=== PATIENT | female | born 1990 | race Caucasian/White ===

== ENCOUNTER 2024-10-14 07:44 | Outpatient (AMB) | payer OTHER, SELFPAY ==
[2024-10-14 07:49] VITALS: BP 116/78; PULSE 92; BMI 28.3
--- NOTE | 2024-10-14 07:49 | MHC.OFFVIS ---
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 Outside labs reviewed done in March 2024 which showed TSH of 2.64. Also showed low total T3 of 52 again no units displayed, free T4 of 1.27. TPO antibodies were undetectable. Ultrasound from October 2024 showed an asymmetrical thyroid with an enlarged right lobe as compared to left lobe, though no discrete nodules, homogeneous appearance. Back in Jan 2024, starting complaining of hair loss , cold intolerance. Reports fatigue. Reports voice hoarseness and difficult swallowing. Hasnt been able to lose weight since the past 2 years. Exercise 3-4 times a week for an hour , lifts ,20 mins cardio. Pregnancies 4 pregnancies, 4 kids. No infertility. No miscarriages. s/p tubal ligation. Does get periods every month. Does reports heavy menstruations. Reports both diarrhea and constipation due to IBS . Reports palpitations intermittently. Patient denies any history of childhood neck radiation. Denies having ever used lithium, amiodarone or biotin supplements. Maternal aunt has hypothyrodiism Paternal cousin diagnosed with thyroid cancer. social history Quit smoking 11 years ago. 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 Pulmonary: intermittent SOB GI:No abdominal pain, no nausea or vomiting, no anorexia, no blood in stool : no burning micturition, dysuria or increase in urinary frequency Physical exam General: sitting comfortably in no acute distress HEENT: normocephalic/atraumatic, EOM intact, moist oral mucosa Neck: supple, symmetrical, no thyromegaly , no dorsocervical or supraclavicular fat pads Cardiac: normal heart sounds Pulm: normal breath sounds B/L, no added breath sounds Abd: not distended, no tenderness Extremities: no edema, no signs of myxedema, brisk reflexes noted Neuro: AAO x3, Speech: normal, no facial droop, moving all 4 extremities PFSH Medical History (Updated 10/14/24 @ 08:31 by Melissa Castro MD) Low serum triiodothyronine (T3) Fatigue Surgical History (Updated 10/14/24 @ 07:51 by CHUY Torres) Hx of cholecystectomy Hx of hernia repair Hx of section Family History (Updated 10/14/24 @ 07:55 by CHUY Torres) Father No problems noted. Mother No problems noted. Social History (Updated 10/14/24 @ 07:51 by CHUY Torres) Alcohol intake: current Alcohol intake frequency: holidays/special occasions only Patient Tobacco Use Status: Former Tobacco user Physical Exam Vital Signs: Last Vital Signs Pulse 92 10/14/24 07:49 BP 116/78 10/14/24 07:49 BMI result Body Mass Index 28.3 Assessment & Plan Assessment & Plan (1) Low serum triiodothyronine (T3): Code(s): R79.89 - Other specified abnormal findings of blood chemistry Category: Medical Plan: 33-year-old female coming in today for initial evaluation for concerns of hypothyroidism as total T3 was noted to be low. Patient does have symptoms consistent with hypothyroidism of significant tiredness, difficulty losing weight, hair loss. However free T4 and TSH noted to be normal from March 2024. We will repeat labs now. If labs are normal, she does not need endocrine follow up, and primary care physician can assess further for causes of tiredness. I also reviewed the report of her thyroid ultrasound from October 2024 which showed homogeneous echotexture. Even though noted to be asymmetrical, these findings are not concerning, no nodules noted. TPO antibodies also noted to be negative. This is again reassuring. I explained to the patient that total T3 can have variability depending on nutritional intake. It is not a good measure to go by in terms of thyroid disease, and we will repeat her TSH and free T4 to ensure that she does not have any thyroid dysfunction. Patient verbalized understanding and is in agreement with the plan. Plan: -ordered TSH, free T4 -if these labs are normal, patient can follow up with primary care physician to assess other causes of her symptoms Plan I spent 40 minutes in reviewing the record, seeing the patient and documenting in the medical record. Orders: Orders Thyroid Stimulating Hormone Today R53.83 - Other fatigue Free T4 (Free Thyroxine) Today R53.83 - Other fatigue Coding Level of Care Code New Pt Level 4 (21802) Diagnoses Low serum triiodothyronine (T3) R79.89 Time Spent (min) 40
== END 2024-10-14 08:22 | disposition home or self-care (01) ==
PROVIDERS: Visit Provider Student in an Organized Health Care Education/Training Program
DX: R79.89 Other specified abnormal findings of blood chemistry (principal)
CPT/HCPCS: 99204

== ENCOUNTER → 2024-10-14 07:44 | Outpatient (BNVA) | payer OTHER, SELFPAY | PROVIDERS: Visit Provider Student in an Organized Health Care Education/Training Program ==

== ENCOUNTER 2024-10-14 08:28 | Outpatient (REF) | payer OTHER, SELFPAY ==
[2024-10-14 11:14] LABS: Free T4 (Free Thyroxine) 0.91 ng/dL (0.71-1.85); Thyroid Stimulating Hormone 2.42 uIU/mL (0.32-4.0)
== END 2024-10-14 08:29 | disposition home or self-care (01) ==
LOC: HO.10HDL 08:28
PROVIDERS: Visit Provider Student in an Organized Health Care Education/Training Program
DX: R53.83 Other fatigue (principal)
CPT/HCPCS: 36415; 84439; 84443

== ENCOUNTER 2025-02-01 07:35 | Outpatient (AMB) | payer OTHER, SELFPAY ==
[2025-02-01 07:37] VITALS: BP 112/72; PULSE 90; O2SAT 96; BMI 28.6
--- NOTE | 2025-02-01 07:37 | A.OFFVIS_ITS ---
Vital Signs 3 02/01/25 07:37 Height 5 ft 1.5 in Weight 153 lb 10.595 oz BMI 28.6 BP 112/72 Blood Pressure Location Lt brachial Position Sitting Pulse 90 Pulse Source Pulse Oximeter Pulse Oximetry (%) 96 Oxygen Delivery Method Room Air Intake Visit Reasons: Thyroid nodule Intake Note: Patient present today for thyroid nodule. Botany Technician Required: No Accompanied by: cousin Allergies amoxicillin [From Augmentin] Allergy (Mild, Verified 02/01/25 07:46) Unknown clavulanic acid [From Augmentin] Allergy (Mild, Verified 02/01/25 07:46) Unknown Medication List - Last Reconciled 02/01/25 by Melissa Castro MD No Known Home Meds HPI Comments Details: 33-year-old female here today for follow up of hypothyroidism. HPI Outside labs reviewed done in March 2024 which showed TSH of 2.64. Also showed low total T3 of 52 again no units displayed, free T4 of 1.27. TPO antibodies were undetectable. Ultrasound from October 2024 showed an asymmetrical thyroid with an enlarged right lobe as compared to left lobe, though no discrete nodules, homogeneous appearance. Back in Jan 2024, starting complaining of hair loss , cold intolerance. Reports fatigue. Reports voice hoarseness and difficult swallowing. Hasnt been able to lose weight since the past 2 years. Exercise 3-4 times a week for an hour , lifts ,20 mins cardio. Pregnancies 4 pregnancies, 4 kids. No infertility. No miscarriages. s/p tubal ligation. Does get periods every month. Does reports heavy menstruations. Reports both diarrhea and constipation due to IBS . Reports palpitations intermittently. Patient denies any history of childhood neck radiation. Denies having ever used lithium, amiodarone or biotin supplements. Maternal aunt has hypothyrodiism Paternal cousin diagnosed with thyroid cancer. social history Quit smoking 11 years ago. 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 Otherwise normal vascularity in homogeneous gland. 01/04/2025: Patient went to the ER because her watch indicated abnormal rhythm of atrial fibrillation, however is found to have normal workup in the ER. Labs at that time showed TSH mildly elevated at 5.58, normal free T4 of 1.19. Constipation, achy joints, LMP: last two periods spotting, dry skin, hair loss, difficulty swallowing, reports cold intolerance. Reports brain fog ROS - General: Reports significant fatigue affecting daily activities. - Skin: Denies skin changes such as vitiligo or acanthosis nigricans but reports dry skin and brittle nails. - Endocrine: Reports cold intolerance, weight gain, and hair loss. - Reproductive: Reports tiredness, low libido, irregular periods with recent episodes of amenorrhea, and consultation with PRIZE COORDINATOR. - Gastrointestinal: Reports constipation. - Musculoskeletal: Reports joint stiffness and achiness. Physical exam General: sitting comfortably in no acute distress HEENT: normocephalic/atraumatic, EOM intact, moist oral mucosa Neck: supple, symmetrical, no thyromegaly , no dorsocervical or supraclavicular fat pads Cardiac: normal heart sounds Pulm: normal breath sounds B/L, no added breath sounds Abd: not distended, no tenderness Extremities: no edema, no signs of myxedema, brisk reflexes noted Neuro: AAO x3, Speech: normal, no facial droop, moving all 4 extremities Laboratory Tests 10/14/24 08:33 TSH 2.42 Free T4 0.91 [facility] Medical History (Updated 02/01/25 @ 08:07 by Melissa Castro MD) Subclinical hypothyroidism Low serum triiodothyronine (T3) Fatigue Surgical History Hx of cholecystectomy Hx of hernia repair Hx of section Family History Father No problems noted. Mother No problems noted. Social History Alcohol intake: current Alcohol intake frequency: holidays/special occasions only Patient Tobacco Use Status: Former Tobacco user Physical Exam Vital Signs: Last Vital Signs Pulse 90 02/01/25 07:37 BP 112/72 02/01/25 07:37 Pulse Ox 96 02/01/25 07:37 Oxygen Delivery Method Room Air 02/01/25 07:37 BMI result Body Mass Index 28.6 Assessment & Plan Assessment & Plan (1) Low serum triiodothyronine (T3): Code(s): R79.89 - Other specified abnormal findings of blood chemistry Category: Medical Plan: See below (2) Subclinical hypothyroidism: Code(s): E03.8 - Other specified hypothyroidism Category: Medical Plan: 33-year-old female coming in today for initial evaluation for concerns of hypothyroidism as total T3 was noted to be low. Patient does have symptoms consistent with hypothyroidism of significant tiredness, difficulty losing weight, hair loss. However free T4 and TSH noted to be normal from March 2024. . I also reviewed the report of her thyroid ultrasound from October 2024 which showed homogeneous echotexture. Even though noted to be asymmetrical, these findings are not concerning, no nodules noted. TPO antibodies also noted to be negative. This is again reassuring. I explained to the patient that total T3 can have variability depending on nutritional intake. It is not a good measure to go by in terms of thyroid disease, labs repeated 10/14/2024 showed normal TSH and free T4. 12/22/2024: Had another ultrasound of the thyroid which showed a subcentimeter nodule in the interpolar region which did not meet TI-RADS criteria for follow up. Otherwise normal vascularity in homogeneous gland. 01/04/2025: Patient went to the ER because her watch indicated abnormal rhythm of atrial fibrillation, however is found to have normal workup in the ER. Labs at that time showed TSH mildly elevated at 5.58, normal free T4 of 1.19. I reviewed the lab results, which indicated subclinical hypothyroidism with a mildly elevated TSH and normal Free T4, and a thyroid ultrasound showed a sub- centimeter nodule. We discussed that no immediate treatment is needed unless the TSH levels escalate or symptoms become more severe. Treatment criteria for subclinical hypothyroidism involves I explained the clinical significance of subclinical hypothyroidism and the criteria for initiating therapy. I informed the patient that the thyroid nodule is non-concerning and requires no follow-up based on its size and features. We agreed to retest thyroid function in eight weeks and monitor symptoms. Patient verbalized understanding and is in agreement with the plan. If she continues to have significant symptoms, with mildly elevated TSH levels, we can do a trial of low-dose 25 mcg of levothyroxine. However currently she has had fluctuations recently in her TSH levels so I will wait for repeat labs. She also had some concern about atrial fibrillation, and unwarranted treatment with levothyroxine can precipitate that. So for now I will monitor her labs closely. Plan: -Repeat thyroid function tests with free T4, TSH, total T3 in eight weeks.. - Follow up in three months, or sooner if symptoms worsen or lab results are concerning. Plan I spent 30 minutes in reviewing the record, seeing the patient and documenting in the medical record. Orders: Orders 2 Thyroid Stimulating Hormone 8 Weeks E03.8 - Other specified hypothyroidism Free T4 (Free Thyroxine) 8 Weeks E03.8 - Other specified hypothyroidism Triiodothyronine T3 Total 8 Weeks E03.8 - Other specified hypothyroidism Coding Level of Care Code Est Pt Level 4 (90259) Diagnoses Low serum triiodothyronine (T3) R79.89 Subclinical hypothyroidism E03.8 Time Spent (min) 30
--- OUTSIDE RECORDS SUMMARY | 2025-02-01 07:37 | XMS_ITS | Encounter Summary ---
Author Organization [facility] Address [address] [place] [address] Care Team Providers Care Cardiovascular Technician Name Role Phone Rachel Augustine MD Primary Care Prov ider Encounter Details Date Type Department Care Team (Late st Contact Info) Description 09/30/2024 9:46 AM EDT Hospital Encounter [facility] Myrtle Arango MD [address] [facility] [address] [place] [address] Social History Tobacco Use Types Packs/Day Years Used Date Smoking Tobacco: Never Assessed Comments Unknown Sex and Gender Information Value Date Recorded Sex Assigned at Not on file Legal Sex Female 3:39 AM EST Gender Identity Not on file Sexual Orientation Not on file documented as of this encounter Last Filed Vital Signs Vital Sign Reading Time Taken Comments Blood Pressure 118/81 09/30/2024 9:53 AM EDT Sitting Left arm Pulse 80 09/30/2024 9:53 AM EDT Temperature - - Respiratory Rate - - Oxygen Saturation - - Inhaled Oxygen Concentration - - Weight 69.3 kg (152 lb 12.8 oz) 08/05/2024 11:44 AM EDT Height 157.5 cm (5' 2 ) 08/05/2024 11:4 4 AM EDT Body Mass Index 27.95 08/05/2024 11:44 AM EDT documented in this encounter Progress Notes * Myrtle Arango MD - 09/30/2024 10:00 AM EDT HPI: Karol Coppola is a 33 y.o. year old female referred to our center by No primary care provider on file. for evaluation and management of white matter lesions Interval history Patient is here for follow up No new neurological symptom concerning for demyelination since last visit Since last visit she had spinal tap with side effects afterwards with trouble with urinary symptoms, headache which all resolved Overall her symptoms have markedly improved she does not experience as much muscle strength numbness or leg dragging Reviewed and discussed CSF results being non inflammatory She has episodes tremulous /tremors mainly in Lt ,Watch the video with very little improvement to rhythmic tremor concerning for milligrams tremor versus essential tremor per patient it is not related to her stress, She is using propranolol as needed for palpitations she is not using it as much discussed with the patient she can try to use it for tremors too as well as headaches Her migraine headache is still bothersome 3 to 3 migraines per month, she tried sumatriptan but makes her very sleepy and drowsy she avoids using it now as she sleeps 4 hours to get rid of her headaches Reviewed and discussed ophthalmology notes obtained with no conclusive data about her visual symptoms she is scheduled to get further workup She is still experiencing difficulty emptying her bladder she was evaluated by gynecology with no conclusive findings she was asked to blow in a strawto help her with her symptoms Last visit history Patient is here for follow up No new neurological symptom concerning for demyelination since last visit Since last visit she has been having frequent infection since last visit, She had pneumonia and strept afterwards , 2 viral colds Reviewed and discussed MRI thoracic spine with the patient with normal T2 changes She denies any change in her bowel or bladder symptoms still experiencing difficulty emptying and urgency Patient is scheduled to be evaluated by ophthalmology HPI 33 yo female with PMH anxiety, depression , endometriosis , Migraine on PRN Fioricet , her neurological symptoms started In January she had mononucleosis infection afterwards, she started developingsymptoms incuding , she had fatigue , shortly after infection she had been very fatigued and burning shocks in her hands and legs occasionally , burning in her hands , difficulty clamping her hands , happen occasionally not persistent none of the symptoms, She is also been experiencing pressure behind Lt eye and tunnel vision , pain with moving her eye , blurry vision come and go , last week shehad an episode of blurry vision She has been having Lt leg dragging last week she had difficulty with walking , she also experiencems stiffness in both her upper and lower extremity She had vertigo in past unsure about exact date, she had couple of hrs at time sometimes Reviewing other concerning symptoms ,She experience a bad brain fog MRI brain was done as part of the workup which did show T2 changes scattered supratentorially she was referred to our clinic for further assessment She has been evaluated with rheumatology at [place] in past for fibromylagia She denies any prior neurological symptoms prior to January Surgery history include c section , gall bladder excision Active Symptoms: Bowel/bladder:she has difficulty empty her bladder , she has urgency , she see obgyn for her symptoms , no specific diagnosis Depression/anxiety: she is on hydroxyzine as needed for anc Gait impairment: no limitation Fatigue: she is always fatigued , she snores while sleeping , she had sleep apnea and Taking vitamin D supplementation: yes Heat Sensitivity:yes Past or present Lhermitte's: yes Past Medical History: Diagnosis Date ??? Anxiety ??? Depression ??? Endometriosis ??? Fibromyalgia ??? Migraine ??? PTSD (post-traumatic stress disorder) ??? Seizure (HCC) ONE SEIZURE IN 2019 NEVER AGAIN Current Outpatient Medications Medication Sig Dispense Refill ??? Hugyigrowk-IUWD-Yjholszc 50-300-40 MG CAPS Take 1 capsule by mouth every 4 (four) hours as needed. ??? hydrOXYzine (ATARAX) 50 MG tablet Take 1 tablet (50 mg total) by mouth 3 (three) times a day asneeded for itching. ??? propranolol (INDERAL) 20 MG tablet Take 1 tablet (20 mg total) by mouth 3 (three) times a day. ??? rizatriptan (MAXALT-RESEARCH AND DEVELOPMENT SPECIALIST) 10 MG disintegrating tablet Take 1 tablet (10 mg total) by mouth as needed for migraine. May repeat in 2 hours if needed 10 tablet 0 No current facility-administered medications for this visit. 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 Neurologic Exam: BP 118/81 (BP Location: Left arm, Patient Position: Sitting) Pulse 80 Temp 97.1 ??F (36.2 ??C) (Temporal) MS: AOx3 CN: perrla, , V1-3 intact to LT, face symmetric, bilateral SCM/trapezius 5/5, tongue/uvula/palate midline Motor: 5/5 in all extremities slight weakness in the left lower extremity 4/5 Sensation: Intact to light touch, temperature, and vibration in all extremities Reflexes: 2+ in bilateral biceps and patellae, toes downgoing bilaterally Cerebellar: FNF intact bilaterally, FFM intact bilaterally, EDWIN intact bilaterally, tandem gait normal, romberg negative Labs: Reviewed available labs Vit B12 399, VIT d 39 Negative MARCO A negative SSA SSB negative CSF white blood cells 2 protein 43 no oligoclonal Imaging: All images were reviewed by me. MRI brain: 05/2024 nonspecific T2 changes mostly subcortical there is some juxtacortical lesions no infratentorial lesions MRI C spine: 05/2024 unremarkable MRI T spine: Unremarkable no T2 change A/P: Karol Coppola is a 33 y.o. year old female with multiple neurological symptoms MRI with white matter lesion. patient does not have a specific episode concerning for demyelination but she had multiple neurological symptoms that are concerning including lower extremity weakness paresthesias that has improved and also bladder symptoms we will evaluate with urology, reviewed MRI brain scattered nonspecific T2 changes some are juxtacortical supratentorial no infratentorial lesion MRI cervical spine/thoracic spine with no cord lesion , discussed with the patient that the lesion burden is higherthan what we expect in her age mainly with no comorbidities we obtained spinal tap that CSF analysis did not show any inflammation did not show any inflammation White matter lesion -MRI brain on annual basis to ensure stability -MRI cervical thoracic spine with no cord lesion -CSF noninflammatory negative oligoclonal bands -Follow-up with ophthalmology for further workup -Will consider PT/OT/ST referral for functional evaluation Urinary symptoms: Will refer to urology -Obtain gynecology notes Migraine headache Rizatriptan abortive Take one tablet as needed for headaches, may repeat in 2 hours, do not exceed more than 2 per day Counseled on avoidance of migraine triggers, particularly sleep deprivation, missed meals, dehydration, certain foods and avoiding excessive caffeine/NSAIDs. -RTC in 4 months for follow up The patient and I discussed the clinical picture during today's appointment. Additional time was spent prior to the actual appointment reviewing records, lab values and imaging results and preparing documentation for today's visit. There was also time spent following the in person visit documenting, arranging for further diagnostic testing and follow-up appointments. The entire time spent in thisprocess was greater than 40 minutes. The majority of the actual [id number] visit was spent counseling the patient with respect to the current neurological picture. Myrtle Arango MD documented in this encounter Plan of Treatment Upcoming Encounters Date Type Department Care Team (Late st Contact Info) Description 02/01/2025 2:30 PM EST Office Visit [facility] for [place] - [place] [address] [place] [address] Remedios Ford, KYLE [address] [place] [address] [place] [address] documented as of this encounter Visit Diagnoses Not on filedocumented in this encounter Care Teams Cardiovascular Technician Relationship Specialty Start Date End Date Rachel Augustine MD PCP - General Internal Medicine 03/26/21 12/26/24 documented as of this encounter
--- OUTSIDE RECORDS SUMMARY | 2025-02-01 07:37 | XMS_ITS | Encounter Summary ---
Author Organization [facility] Address [address] [place] [address] Care Team Providers Care County Agent Name Role Phone Rachel Augustine MD Primary Care Prov ider Encounter Details Date Type Department Care Team (Latest Contact Info) Description 08/31/2024 7:56 AM EDT Hospital Encounter TH HISTORIC ENCOUNTERS [facility] ONLY Myrtle Arango MD [address] [facility] [address] [place] [id number] Disorder of brain, unspecified Social History Tobacco Use Types Packs/Day Years Used Date Smoking Tobacco: Never Assessed Comments Unknown Sex and Gender Information Value Date Recorded Sex Assigned at Not on file Legal Sex Female 3:39 AM EST Gender Identity Not on file Sexual Orientation Not on file documented as of this encounter Plan of Treatment Upcoming Encounters Date Type Department Care Team (Late st Contact Info) Description 02/01/2025 2:30 PM EST Office Visit [facility] for [facility] [address] [place] [phone] Remedios Ford, KYLE [address] [place] [address] [place] [address] [phone] (work) documented as of this encounter Procedures Procedure Name Priority Date/Time Associated Diagnosis Comments LUMBAR PUNCTURE Routine 08/31/2024 3:51 PM EDT Disorder of brain, unspecified documented in this encounter Results * LUMBAR PUNCTURE (08/31/2024 3:51 PM EDT) Anatomical Region Laterality Modality Interventional R adiology 08/31/2024 8:10 AM EDT Narrative 08/31/2024 3:51 PM EDT [facility] Diagnostic Imaging Department [address] [place] [id number] Patient: ??LLOYDWICHO ?/Age/Sex: 1990 - 33 - F Unit#: ??[id number] ? Location/Status: ??SPDIANGIO/REG CLI ? Mnemonic/Ordering Site: ??PUNCTMYELO/SPIR Ordering Physician: ??DARLENE ARANGO MD Lumbar Puncture - 08/31/241022 Report Status:Signed INDICATION: White matter lesions concerning for multiple sclerosis TECHNIQUE: Written informed consent obtained. Patient placed in the left lateral decubitus position on the angiographic table and lower lumbar spine draped and prepped in usual sterile fashion. 6 cc of 1% buffered lidocaine utilized as local anesthetic. Sedation: Moderate intravenous sedation was initiated and maintained for 30 minutes while the patient was independently monitored by the radiology nurse under the supervision of the interventional radiologist. A total of 2 mg of Versed and 50 mcg of fentanyl administered during the procedure. Under fluoroscopic guidance 20 gauge spinal needle advanced into the thecal sac at the L3-L4 level. Clear CSF noted from the needle hub. Approximately 16 mL of CSF removed and sent for evaluation as ordered. Opening pressure 18 centimeters of water with closing pressure 11 centimeters of water. Needle removed and bandage applied. The patient tolerated the procedure well and left the department in stable condition without immediate complications. FINDINGS: Needle access at the L3-L4. Total patient dose (air kerma): 12 mGy IMPRESSION: Fluoroscopic-guided lumbar puncture. Dictating Physician: ??HANNAH ESPINOZA MD Electronically Signed by: ??HANNAH ESPINOZA MD Dic Date/Time: ??08/31/241550 Sign date/Time: ??08/31/241550 Procedure Note Hannah Espinoza MD - 09/28/2024 [facility] Diagnostic Imaging Department [address] [place] [address] Patient: LLOYDWICHOO.B./Age/Sex: 1990 - 33 - F Unit#: [id number] Location/Status: SPDIANGIO/REG CLI Mnemonic/Ordering Site: PUNCTMYELO/SPIR Ordering Physician: DARLENE ARANGO MD Lumbar Puncture - 08/31/24 - 1023 Report Status:Signed INDICATION: White matter lesions concerning for multiple sclerosis TECHNIQUE: Written informed consent obtained. Patient placed in the left lateral decubitus position on the angiographictable and lower lumbar spine draped and prepped in usual sterile fashion. 6 cc of 1% buffered lidocaine utilized as local anesthetic. Sedation: Moderate intravenous sedation was initiated and maintained for30 minutes while the patient was independently monitored by the radiologynurse under the supervision of the interventional radiologist. A total of 2 mgof Versed and 50 mcg of fentanyl administered during the procedure. Under fluoroscopic guidance 20 gauge spinal needle advanced into thethecal sac at the L3-L4 level. Clear CSF noted from the needle hub. Approximately 16mL of CSF removed and sent for evaluation as ordered. Opening pressure 18centimeters of water with closing pressure 11 centimeters of water. Needle removedand bandage applied. The patient tolerated the procedure well and left the department in stable condition without immediate complications. FINDINGS: Needle access at the L3-L4. Total patient dose (air kerma): 12 mGy IMPRESSION: Fluoroscopic-guided lumbar puncture. Dictating Physician: HANNAH ESPINOZA MD Electronically Signed by: HANNAH ESPINOZA MD Dic Date/Time: 08/31/24 155 Sign date/Time: 08/31/241550 Myrtle Arango MD IMG IR PROCEDURES Final Result documented in this encounter Visit Diagnoses Diagnosis Disorder of brain, unspecified documented in this encounter Care Teams County Agent Relationship Specialty Start Date End Date Rachel Augustine MD PCP - General Internal Medicine 03/26/21 12/26/24 documented as of this encounter
--- OUTSIDE RECORDS SUMMARY | 2025-02-01 07:37 | XMS_ITS ---
Author Name [facility] Unknown History of Medication Use Medication Directions Dispensed Refills Start Date End Date Stat us hydrOXYzine (ATARAX) 50 MG tablet Take 1 tablet (50 mg total) by mouth 3 (three) times a day as needed for itching. active Problems Problem Status Onset Date Problem Type Date of Resoluti on Source Multiple sclerosis (HCC) active EncounterDiagnosisAct CTTHNE MG
--- OUTSIDE RECORDS SUMMARY | 2025-02-01 07:37 | XMS_ITS | Clinical Summary ---
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 Name Role Phone Rachel Augustine MD Primary Care Prov ider Allergies Active Allergy Reactions Criticality Noted Date Comments Diphenoxylate-Atropine Medium 04/06/2010 Other Reaction(s): OTHER Tingling hands, chest discomfort, difficulty breathing Iodinated Contrast Media Low 03/19/2016 Other Reaction(s): Rash/Dermatitis Pt called into radiology about 1 1/2 hrs after iv contrast injection stating that she had an area ??red bumps on forearm where the iv was and some redness of skin on her chest and forearm Medications omeprazole (PriLOSEC) [address] capsule Take 1 capsule (20 mg total) by mouth 1 (one) time each day. 3 Active COVID-19 antigen test (BinaxNOW COVD Ag Card Home Tst) kit TEST DIRECTED TODAY 2 Active oseltamivir (TAMIFLU) 75 mg capsule oseltamivir 75 mg capsule Active amitriptyline (ELAVIL) 10 mg tablet Take 1 tablet (10 mg total) by mouth at bedtime. 2 Active Active Problems Problem Noted Date Diagnosed Date Protein S deficiency 11/04/2024 Adjustment insomnia 08/09/2022 Post depression 08/09/2022 Chronic headache disorder 05/12/2017 Overview (11/04/2024): Neg home sleep study 12/22/19 Nonulcer dyspepsia 05/12/2017 Adjustment disorder with depressed mood 10/21/20 16 Anxiety 10/21/2016 IBS (irritable bowel syndrome) 05/02/2014 Overview (11/04/2024): Alternating constipation/diarrhea. Ganglion cyst of wrist 04/10/2011 Gastritis 07/19/2010 Overview (11/04/2024): ugi neg 07/16/10, small duodenal diverticulum Proteinuria 11/21/2009 Asthma 03/09/2007 Immunizations Name Administration Dates Next Due DTP 04/04/1994, 9,04/14/1989,1988 H1N1 Inj Preservative Free 11/21/2009 Hepatitis B Pediatric (Enger ix B; Recombivax HB) to less than 20 yo 03/04/2001,11/12/2000,09/29/2000 Influenza trivalent, 0.5mL, preservative free (Fluarix; FluLaval; Fluzone) ages 6mo and older (Afluria) 3 years and older 10/05/2013 Influenza trivalent, with preservative (Fluzone; Afluria) 6mo and older 10/01/2010,11/21/2009 Influenza, Unspecified 11/11/2022 MMR, measles mumps and rubel la Live (Priorix; M-M-R II) 12mo and older 08/24/2001,06/11/1994 OPV 04/04/1994,07/15/1989,01/15/1989 Pfizer SARS-CoV-2 COVID-19, mRNA, LNP-S, preservative free 03/20/2021,03/01/2021,02/08/2021 Td Tetanus diptheria (Tdvax) 7yo and older 08/24/2001 Surgical History Surgery Date Site/Laterality Comments SECTION PROCEDURE: SECTION HERNIA REPAIR PROCEDURE:HERNIA REPAIR CHOLECYSTECTOMY PROCEDURE:CHOLECYSTECTOMY OTHER SURGICAL HISTORY PROCEDURE:ENDOMETRIOSIS Medical History Medical History Date Comments Migraine DX:Migraine Depression DX:Depression Anxiety DX:Anxiety PTSD (post-traumatic stress disorder) DX:PTSD (post-traumatic stress disorder) Fibromyalgia DX:Fibromyalgia Endometriosis DX:Endometriosis Seizure (CMS/HCC) DX:Seizure (HC C);COMMENT:ONE SEIZURE IN 2019 NEVER AGAIN Social History Tobacco Use Types Packs/Day Years Used Date Smoking Tobacco: Never Assessed Comments Unknown Sex and Gender Information Value Date Recorded Sex Assigned at Not on file Legal Sex Female 3:39 AM EST Gender Identity Not on file Sexual Orientation Not on file Obstetrics History Last Filed Vital Signs Vital Sign Reading [...] Mass Index 27.95 08/05/2024 11:44 AM EDT Plan of Treatment Upcoming Encounters Date Type Department Care Team (Late st Contact Info) Description 02/01/2025 2:30 PM EST Office Visit [facility] [address] [place] [id number] Remedios Ford, KYLE [address] [place] [address] [place] [address] Health Maintenance Due Date Last Done Comments Pneumococcal Vaccine: Pediatrics (0 to 5 Years) and At-Risk Patients (6 to 64 Years) (1 of 2 - PCV) 2007 Cervical Cancer Screening: Pap Smear 02/11/2021 02/11/2018 Cholesterol Screening (Lipid Panel) 11/09/2022 2015 Depression Screening 11/09/2022 Social Influencers of Health Screening 11/09/2022 COVID-19 Vaccine ( season) 2024 03/20/2021, 03/01/2021, 02/08/2021 Influenza Vaccine (#1) 2024 3, 11/11/2022, 10/15/2021, Additional history exists DTaP,Tdap,and Td Vaccines (8 - Td or Tdap) 05/07/2032 05/07/2022, 01/11/2014, 08/24/2001, Additional history exists IPV Vaccines Completed 04/04/1994, 07/01, 01/15/1989 Hepatitis B Vaccines Completed 03/04/2001, 11/12/2000, 09/29/2000 MMR Vaccines Completed 08/24/2001, 06/11/1994 HIV Screening Completed 09/14/2018 Hepatitis C Screening Completed 09/14/2018 HIB Vaccines Aged Out No longer eligi ble based on patient's age to complete this topic HPV Vaccines Aged Out No longer eligi ble based on patient's age to complete this topic Hepatitis A Vaccines Aged Out No long er eligible based on patient's age to complete this topic Meningococcal ACWY Vaccine Aged Out N o longer eligible based on patient's age to complete this topic Meningococcal B Vacine Aged Out No lo nger eligible based on patient's age to complete this topic RSV Immunization Patients Under 20 months Aged Out No longer eligible based on patient's age to complete this topic Varicella Vaccines Aged Out No longer eligible based on patient's age to complete this topic Procedures Procedure Name Priority Date/Time Associated Diagnosis Comments HEPATITIS C SCREENING Routine 09/14/2018 HIV SCREENING Routine 09/14/2018 PAP SMEAR Routine 02/11/2018 LIPID PANEL Routine 2015 from Last 3 Months or Most Recently Relevant to Health Maintenance Results * HIV Screening (09/14/2018) HIV Screening abstracted us Historical Provider HEALTH MAINTENANCE Final Result * Hepatitis C Screening (09/14/2018) Hepatitis C Screening abstracted us Historical Provider HEALTH MAINTENANCE Final Result * Pap Smear (02/11/2018) Pap smear abstracted, no interpretation Historical Provider HEALTH MAINTENANCE Final Result * (ABNORMAL) Lipid panel (2015) LDL/HDL Ratio 4 0 - 4 Triglycerides 103 0 - 150 mg/dL Cholesterol 256(A) 0 - 200 mg/dL HDL 63 >=40 mg/dL LDL Cholesterol 173(A) 0 - 100 mg/dL Blood Venous blood specimen / Unknown Historical Provider LAB BLOOD ORDERABLES Veronika l Result from Last 3 Months or Most Recently Relevant to Health Maintenance Insurance MEDICAID - [place] [facility] Care Teams Scalping Machine Operator Relationship Specialty Start Date End Date Rachel Augustine MD [address] [place] [id number] PCP - General Internal Medicine 12/27/24
--- OUTSIDE RECORDS SUMMARY | 2025-02-01 07:37 | XMS_ITS | Clinical Summary ---
Author Organization [facility] Address [address] [place] [address] Care Team Providers Care Senior Commissions Analyst Name Role Phone Unavailable Primary Care Provider Unavailabl e Medications Medication Sig Dispensed Refills Start Date End Date Status Xzmvsofhcz-AJXA-Rplggro e 50-300-40 MG CAPS Take 1 capsule by mouth every 4 (four) hours as needed. 0 05/21/2024 Active propranolol (INDERAL) 20 MG tablet Take 1 tablet (20 mg total) by mouth 3 (three) times a day. 0 Active hydrOXYzine (ATARAX) 50 MG tablet Take 1 tablet (50 mg total) by mouth 3 (three) times a day as needed for itching. 0 Active rizatriptan (MAXALT-STEWARD/STEWARDESS) 10 MG disintegrating tablet Take 1 tablet (10 mg total) by mouth as needed for migraine. May repeat in 2 hours if needed 10 tablet 0 09/30/2024 Active Social History Tobacco Use Types Packs/Day Years Used Date Smoking Tobacco: Never Assessed Sex and Gender Information Value Date Recorded Sex Assigned at Female 05/25/2024 11:20 AM EDT Gender Identity Not on file Sexual Orientation Not on file Job Start Date Occupation Industry Not on file Not on file Not on file Last Filed Vital Signs Vital Sign Reading Time Taken Comments Blood Pressure 118/81 09/30/2024 9:53 AM EDT Pulse 80 09/30/2024 9:53 AM EDT Temperature 36.2 ??C (97.1 ??F) 09/30/2024 9:53 AM ED T Respiratory Rate - - Oxygen Saturation 98% 08/05/2024 11: 44 AM EDT Inhaled Oxygen Concentration - - Weight 69.3 kg (152 lb 12.8 oz) 024 11:44 AM EDT Height 157.5 cm (5' 2 ) 08/05/2024 11:4 4 AM EDT Body Mass Index 27.95 08/05/2024 11:44 AM EDT Plan of Treatment Health Maintenance Due Date Last Done Comments Hepatitis C Screening 1988 Depression Screening 2000 DTap / Tdap / Td (5 - Tdap) 08/25/200108/02, 04/04/1994, 07/15/1989, Additional history exists BMI Counseling 2006 Preventative Health Evaluation 2006 Cervical Cancer Screening (Pap Smear) 2009 COVID-19 Vaccine ( season) 2024 03/20/2021, 03/01/2021, 02/08/2021 Influenza Vaccine (#1) 2024 , 10/15/2021, 09/25/2020, Additional history exists Hepatitis B Vaccines Completed 03/04/2001, 11/12/2000, 09/29/2000 Pneumococcal Vaccine Aged Out No long er eligible based on patient's age to complete this topic RSV Ped < 20 months Aged Out No longe r eligible based on patient's age to complete this topic
== END 2025-02-01 08:24 | disposition home or self-care (01) ==
PROVIDERS: Visit Provider Student in an Organized Health Care Education/Training Program
DX: R79.89 Other specified abnormal findings of blood chemistry (principal); E03.8 Other specified hypothyroidism
CPT/HCPCS: 99214